=== PATIENT | female | born 1970 | race Caucasian/White ===

== ENCOUNTER 2018-10-14 12:57 | Emergency (ER) | payer BC, OTHER ==
[~2018-10-14] VITALS: Wt 75.0 kg
[2018-10-14] MEDS ORDERED: SOD CHLORIDE 0.9% 1,000 ML IV STA (13:49)
[2018-10-14] MEDS ORDERED: ONDANSETRON 4 MG INJ IV STA (13:49)
[2018-10-14] MEDS ORDERED: MECLIZINE 12.5 MG TAB PO ONE (14:00)
--- NOTE | 2018-10-14 14:15 | ERD ---
ER Documentation Chief Complaint Chief Complaint NON TRAUMATIC DIZZINESS NO HEADACHE. GENERAL BODY PAIN. NO FEVERS HPI This is a 48-year-old female with a nonsignificant past medical history presents ED with multiple complaints. Patient states that 3 weeks ago she started having all over body aches. Patient states that over the past 2 days she started developing sore throat as well as a pressure-like headache. Patient states that today she had 3 episodes of dizziness that she describes as the room spinning with head movement. Patient states as when she lies still she does not experience the dizziness. Patient denies fever, chills, worst headache of life, blurry vision, changes in vision, weakness, confusion, nausea or vomiting and all other symptoms ROS All systems reviewed and are negative except as per history of present illness. Allergies Allergies: Coded Allergies: No Known Allergy (Unverified , 04/23/13) PMhx/Soc History of Surgery: Yes (APPENDIX, BLADDER LIFT) Anesthesia Reaction: No Hx Neurological Disorder: No Hx Respiratory Disorders: No Hx Cardiac Disorders: No Hx Psychiatric Problems: No Hx Miscellaneous Medical Probl: No (MIGRAINES) Hx Alcohol Use: No Hx Substance Use: No Hx Tobacco Use: No FmHx Family History: No diabetes Physical Exam Vitals Vital Signs Date Temp Pulse Resp B/P (MAP) Pulse Ox O2 O2 Flow FiO2 Time Delivery Rate 10/14/18 98.2 90 18 150/88 98 13:00 (108) Physical Exam Physical Exam Vitals signs: Reviewed by me. General: Well developed, well nourished, in no acute distress. Patient is awake and alert. Head: Normocephalic, atraumatic. Eyes: Normal conjunctiva, Pupils PERRLA, EOM intact bilaterally x6 ENT: Pharynx is clear, Moist mucous membranes, external ears, nose and mouth n ormal Neck: Supple, no masses, lymphadenopathy or JVD Respiratory: Clear to auscultation bilaterally with no wheezing, rhonchi, rales, no distress Cardiovascular: RRR, no murmurs, rubs, or gallops Abdominal: Soft, non-tender, non-distended, no peritoneal signs : Deferred MSK: No edema, no unilateral swelling, 5/5 strength Back: No midline tenderness. No flank tenderness Neurologic: Alert and oriented, moving all extremities, normal speech, no focal weakness, no cerebellar signs. Normal mentation Neuro: M/S: Alert and oriented Face: EOMI, face and pharynx with normal sensation and function Motor: Normal strength throughout Sensation: Normal sensation throughout Speech: Normal Cerebel: Normal coordination Normal gait Normal finger to nose DTR: 2+ and symmetric upper/lower extremities Cranial nerves 2 through 12 intact bilaterally Skin: warm and dry, No rash Psych: Normal mood Result Diagram: 10/14/18 1411 10/14/18 1411 Results 24 hrs Laboratory Tests Test 10/14/18 14:11 White Blood Count 7.0 10^3/ul Red Blood Count 5.04 10^6/ul Hemoglobin 14.5 g/dl Hematocrit 42.4 % Mean Corpuscular Volume 84.1 fl Mean Corpuscular Hemoglobin 28.8 pg Mean Corpuscular Hemoglobin Concent 34.2 g/dl Red Cell Distribution Width 13.1 % Platelet Count 317 10^3/UL Mean Platelet Volume 9.5 fl Immature Granulocytes % 0.400 % Neutrophils % 66.2 % Lymphocytes % 24.4 % Monocytes % 6.4 % Eosinophils % 1.9 % Basophils % 0.7 % Nucleated Red Blood Cells % 0.0 /100WBC Immature Granulocytes # 0.030 10^3/ul Neutrophils # 4.6 10^3/ul Lymphocytes # 1.7 10^3/ul Monocytes # 0.5 10^3/ul Eosinophils # 0.1 10^3/ul Basophils # 0.1 10^3/ul Nucleated Red Blood Cells # 0.0 10^3/ul Prothrombin Time 26.0 Sec Prothrombin Time Ratio 2.0 INR International Normalized Ratio 2.37 Activated Partial Thromboplast Time 28.6 Sec Urine Color STRAW Urine Clarity CLEAR Urine pH 6.0 Urine Specific [place] 1.003 Urine Ketones NEGATIVE mg/dL Urine Nitrite NEGATIVE mg/dL Urine Bilirubin NEGATIVE mg/dL Urine Urobilinogen NEGATIVE mg/dL Urine Leukocyte Esterase NEGATIVE Meet/ul Urine Hemoglobin NEGATIVE mg/dL Urine Glucose NEGATIVE mg/dL Urine Total Protein NEGATIVE mg/dl Sodium Level 140 mmol/L Potassium Level 3.8 mmol/L Chloride Level 102 mmol/L Carbon Dioxide Level 25 mmol/L Anion Gap 13 Blood Urea Nitrogen 11 mg/dl Creatinine 0.65 mg/dl Est Glomerular Filtrat Rate mL/min > 60 mL/min Glucose Level 114 mg/dl Calcium Level 10.0 mg/dl Total Bilirubin 0.3 mg/dl Direct Bilirubin 0.00 mg/dl Indirect Bilirubin 0.3 mg/dl Aspartate Amino Transf (AST/SGOT) 42 IU/L Alanine Aminotransferase (ALT/SGPT) 34 IU/L Alkaline Phosphatase 77 IU/L Total Protein 8.6 g/dl Albumin 4.9 g/dl Globulin 3.70 g/dl Albumin/Globulin Ratio 1.32 Current Medications Medications Dose Sig/Virgil Start Time Status Last (Trade) Ordered Route PRN Stop Time Admin Dose Reason Admin Sodium 1,000 ml @ Q1H STAT 10/14/18 DC 10/14/18 Chloride 1,000 mls/hr IV 13:49 14:20 10/14/18 14:49 Ondansetron 4 mg ONCE STAT 10/14/18 DC 10/14/18 HCl (Zofran IV 13:49 14:20 Inj) 10/14/18 13:52 Meclizine 25 mg ONCE ONCE 10/14/18 DC 10/14/18 HCl PO 14:00 14:20 (Antivert) 10/14/18 14:01 Procedures/MDM EKG, MONITORS, & DIAGNOSTIC IMAGING: EKG read by waldrop: Rate/Rhythm: Regular rate and rhythm at a rate of 67 Intervals: Normal Impression: No evidence of ischemia or arrhythmia No ST elevation, no peak T waves, no widened QRS, no [place] interval prolongation [place] [address] Radiology Main Line: [phone] DIAGNOSTIC IMAGING REPORT Patient: LAZARO SAHU : 1970 Age: 48 Sex: F MR #: [id number] [facility] #: [id number] DOS: 10/14/18 [facility]9 Ordering MD: GREGORIO SOTOMAYOR PA-C Location: [facility] Room/Bed: PROCEDURE: CT Brain without contrast. CLINICAL INDICATION: Headache. TECHNIQUE: A CT of the brain without contrast was performed utilizing axial sections from the skull base through the vertex. One or more the following does reduction techniques were utilized: Automated exposure control, adjustment of the mA/ or kV according to patient's size, or use of iterative reconstruction technique. Total exam CTDIvol is 39 MGy and DLP is 634 mGy-cm. DICOM images are available. COMPARISON: Brain CT 10/07/2012. FINDINGS: The ventricles and sulci are age-appropriate. There is no intracranial hemorrhage, mass effect or midline shift. No abnormal intra-axial or extra- axial fluid collections are seen. The parson/white matter differentiation is well preserved. Partially empty sella turcica is noted. There are minimal scattered foci of hypoattenuation in the periventricular, deep, and subcortical white matter, which are nonspecific in etiology but likely reflect chronic small vessel ischemic changes. The visualized paranasal sinuses are essentially clear. IMPRESSION: 1. No acute intracranial hemorrhage, transcortical infarction or mass effect. 2. Minimal chronic small vessel ischemic changes. 3. Partially empty sella turcica. RPTAT: HH .Jason Hdez MD, Date Time Electronically viewed and signed by .Jason Hdez MD, MD on 10/14/2018 14:59 .N/ CC: GREGORIO SOTOMAYOR PA-C [id number] LAB INTERPRETATION: CBC shows no evidence of hemorrhage or infection Chemistry shows no evidence of significant electrolyte abnormalities or renal insufficiency Liver function test shows no evidence of acute biliary or hepatic dysfunction Coagulation study showed no concerning coagulopathy UA Unremarkable ER COURSE: The patient was given IV normal saline, meclizine and Zofran The medication was well tolerated and the patient reports improvement in symptoms. The patient was stable throughout ED course. I kept the patient and/or family informed of laboratory and diagnostic imaging results throughout the emergency room course. The patient was promptly evaluated and a treatment plan was devised based on H&P and other data. This plan was discussed with the patient who agreed and had no further questions or concerns prior to discharge. MEDICAL DECISION MAKING: This is a 48-year-old female with a nonsignificant past medical history presents ED with multiple complaints. Patient states that 3 weeks ago she started having all over body aches. Patient states that over the past 2 days she started developing sore throat as well as a pressure-like headache. Patient states that today she had 3 episodes of dizziness that she describes as the room spinning with head movement. Differential diagnosis include but are not limited to central causes such as cerebellar infarct, cerebellar pallor hemorrhage, cerebellar tumor, acoustic neuroma, peripheral causes such as benign positional vertigo, labyrinthitis, medication, Mnire's disease. This is likely benign positional vertigo. Patient has no neurological deficits. Patient was given meclizine, Zofran and IV normal saline in the ED today and reports improvement in symptoms. patient's vitals are stable and can be managed with close out patient follow up. Advised to follow up with primary care in the next 48 hours. Return to emergency department with any any worsening symptoms Discussed case with my overseeing physician Dr. Josue benz and he agrees with plan of close outpatient follow-up. DISPOSITION PLAN: We discussed follow up with the patient's primary care doctor within 24 to 48 hours. Patient counseled regarding my diagnostic impression and care plan. Prior to discharge all questions answered. Pt agrees with treatment plan and understands strict return precautions. Precautionary instructions provided including instructions to return to the ER if not improving or for any worsening or changing symptoms or concerns. SPECIALIST FOLLOW UP RECOMMENDED: None Patient has been advised to follow up with primary care in 1-2 days. Disclaimer: Inadvertent spelling and grammatical errors are likely due to EHR/dictation software use and do not reflect on the overall quality of patient care. Also, please note that the electronic time recorded on this note does not necessarily reflect the actual time of the patient encounter. Blood Pressure Assessment: Patient's blood pressure was elevated (>120/80) but appears stable without evidence of hypertension emergency or urgency. The patient was counseled about the risks of hypertension and urged to pursue outpatient monitoring and therapy within a week with their primary care physician. Departure Diagnosis: Primary Impression: Benign positional vertigo Laterality: unspecified laterality Qualified Codes: H81.10 - Benign paroxysmal vertigo, unspecified ear Condition: Stable Patient Instructions: Benign Positional Vertigo, Vertigo, Unspecified Referrals: [facility] Additional Instructions: Patient advised to return to the ED immediately for new or worsening symptoms. Patient advised to follow up with primary care provider in the next 24-48 hours. Patient verbalized understanding and agrees with treatment plan and course of action. If patient has no primary care they may follow up with one of the community clinics listed on the following page or one of the options listed below [facility] + [address] [address] or [facility] [address] [place] [address] or [facility] [address] [place] [address] GREGORIO SOTOMAYOR PA-C Oct 14, 2018 14:15
[2018-10-14] MEDS ORDERED: MECL12.574 PO (15:17)
[2018-10-14 15:28] VITALS: BP 124/82; PULSE 66; RESP 16
== END 2018-10-14 15:32 | disposition home or self-care (01) ==
LOC: FTE 12:57
DX: H81.13 Benign paroxysmal vertigo, bilateral (principal)
CPT/HCPCS: 36415; 70450; 80053; 81003; 85025; 85610; 85730; 87400; 93005; 96361; 96374; 99285; J2405; J7030

== ENCOUNTER 2018-12-01 08:08 | Emergency (ER) | payer BC ==
[~2018-12-01] VITALS: Wt 73.0 kg
[~2018-12-01 08:08] MED LIST: MECL12.574 PO
[2018-12-01] MEDS ORDERED: ONDANSETRON 4 MG INJ IV STA (08:28)
[2018-12-01] MEDS ORDERED: morphine 4 MG/ML VIAL IV STA (08:28)
[2018-12-01] MEDS ORDERED: IBUP-1542 PO (09:52)
[2018-12-01] MEDS ORDERED: ONDA4TAB14 PO (09:52)
[2018-12-01 10:02] VITALS: BP 146/76; PULSE 72; RESP 18
--- NOTE | 2018-12-01 13:59 | ERD ---
ER Documentation Chief Complaint Chief Complaint RIGHT FLANK PAIN X 4 DAYS WITH NAUSEA HPI Patient is a 48-year-old female with hypertension who presents with abdominal pain. The patient had abdominal pain in the right upper quadrant which started 4 days ago. The pain comes and goes and is sharp in nature. The patient tried ibuprofen yesterday. The patient has no fevers. The patient has nausea but no vomiting or diarrhea. ROS All systems reviewed and are negative except as per history of present illness. Medications Home Meds Active Scripts Ondansetron (Ondansetron Odt) 4 Mg Tab.rapdis, 4 MG PO Q6H PRN for NAUSEA AND/OR VOMITING, #10 TAB Prov:CHIKIS DESAI MD 12/01/18 Ibuprofen* (Motrin*) 600 Mg Tab, 600 MG PO Q6H PRN for PAIN AND OR ELEVATED TEMP, #30 TAB Prov:CHIKIS DESAI MD 12/01/18 Meclizine Hcl* (Antivert*) 12.5 Mg Tab, 12.5 MG PO Q6H PRN for DIZZINESS, #20 TAB Prov:GREGORIO SOTOMAYOR PA-C 10/14/18 Allergies Allergies: Coded Allergies: No Known Allergy (Unverified , 04/23/13) PMhx/Soc History of Surgery: Yes (APPENDIX, BLADDER LIFT) Anesthesia Reaction: No Hx Neurological Disorder: No Hx Respiratory Disorders: No Hx Cardiac Disorders: Yes (HTN) Hx Psychiatric Problems: No Hx Miscellaneous Medical Probl: No (MIGRAINES) Hx Alcohol Use: No Hx Substance Use: No Hx Tobacco Use: No Smoking Status: Never smoker FmHx Family History: diabetes Physical Exam Vitals Vital Signs Date Temp Pulse Resp B/P (MAP) Pulse Ox O2 O2 Flow FiO2 Time Delivery Rate 12/01/18 72 18 146/76 98 Room Air 10:02 (99) 12/01/18 98.1 65 18 158/97 99 08:09 (117) Physical Exam Const: No acute distress Head: Atraumatic Eyes: Normal Conjunctiva ENT: Normal External Ears, Nose and Mouth. Neck: Full range of motion. No meningismus. Resp: Clear to auscultation bilaterally Cardio: Regular rate and rhythm, no murmurs Abd: Soft, right upper quadrant tenderness to palpation without rebound or guarding Skin: No petechiae or rashes Back: No midline or flank tenderness Ext: No cyanosis, or edema Neur: Awake and alert Psych: Normal Mood and Affect Result Diagram: 12/01/18 0833 12/01/18 0833 Results 24 hrs Laboratory Tests Test 12/01/18 08:33 12/01/18 08:57 White Blood Count 4.8 10^3/ul Red Blood Count 4.80 10^6/ul Hemoglobin 13.7 g/dl Hematocrit 40.8 % Mean Corpuscular Volume 85.0 fl Mean Corpuscular Hemoglobin 28.5 pg Mean Corpuscular Hemoglobin Concent 33.6 g/dl Red Cell Distribution Width 13.3 % Platelet Count 264 10^3/UL Mean Platelet Volume 9.8 fl Immature Granulocytes % 0.400 % Neutrophils % 54.8 % Lymphocytes % 33.4 % Monocytes % 7.3 % Eosinophils % 3.3 % Basophils % 0.8 % Nucleated Red Blood Cells % 0.0 /100WBC Immature Granulocytes # 0.020 10^3/ul Neutrophils # 2.6 10^3/ul Lymphocytes # 1.6 10^3/ul Monocytes # 0.4 10^3/ul Eosinophils # 0.2 10^3/ul Basophils # 0.0 10^3/ul Nucleated Red Blood Cells # 0.0 10^3/ul Urine Color YELLOW Urine Clarity SLIGHTLY CLOUDY Urine pH 5.0 Urine Specific [place] 1.018 Urine Ketones NEGATIVE mg/dL Urine Nitrite NEGATIVE mg/dL Urine Bilirubin NEGATIVE mg/dL Urine Urobilinogen NEGATIVE mg/dL Urine Leukocyte Esterase TRACE Meet/ul Urine Microscopic RBC > 182 /HPF Urine Microscopic WBC 6 /HPF Urine Squamous Epithelial Cells FEW /HPF Urine Mucus FEW /HPF Urine Hemoglobin 3+ mg/dL Urine Glucose NEGATIVE mg/dL Urine Total Protein NEGATIVE mg/dl Sodium Level 143 mmol/L Potassium Level 4.1 mmol/L Chloride Level 108 mmol/L Carbon Dioxide Level 28 mmol/L Anion Gap 7 Blood Urea Nitrogen 13 mg/dl Creatinine 0.67 mg/dl Est Glomerular Filtrat Rate mL/min > 60 mL/min Glucose Level 95 mg/dl Calcium Level 9.2 mg/dl Total Bilirubin 0.5 mg/dl Direct Bilirubin 0.00 mg/dl Indirect Bilirubin 0.5 mg/dl Aspartate Amino Transf (AST/SGOT) 37 IU/L Alanine Aminotransferase (ALT/SGPT) 28 IU/L Alkaline Phosphatase 62 IU/L Total Protein 7.5 g/dl Albumin 4.1 g/dl Globulin 3.40 g/dl Albumin/Globulin Ratio 1.20 Lipase 54 U/L POC Beta HCG, Qualitative NEGATIVE Current Medications Medications Dose Sig/Virgil Start Time Status Last (Trade) Ordered Route PRN Stop Time Admin Dose Reason Admin Morphine 4 mg ONCE STAT 12/01/18 DC 12/01/18 Sulfate IV 08:28 12/01/18 08:47 (morphine) 08:29 Ondansetron 4 mg ONCE STAT 12/01/18 DC 12/01/18 HCl (Zofran IV 08:28 12/01/18 08:47 Inj) 08:29 Procedures/MDM Ultrasound the gallbladder shows no signs of cholecystitis per radiology. Patient is a 48-year-old female who presents with abdominal pain. Laboratory studies are basically normal and ultrasound shows no signs of cholecystitis. I believe the patient likely has biliary colic at this point. The patient will be given a prescription for ibuprofen and Zofran and will need to follow-up with the primary doctor as well as Dr. Adorno the surgeon on-call for potential elective cholecystectomy. At this point I doubt cholecystitis, pancreatitis, appendicitis, or bowel obstruction. I believe outpatient management is appropriate but the patient will need close follow-up within 24 to 48 hours. The patient can return for any worsening symptoms. Departure Diagnosis: Primary Impression: Biliary colic Additional Impression: Abdominal pain Abdominal location: right upper quadrant Qualified Codes: R10.11 - Right upper quadrant pain Condition: Fair Patient Instructions: Abdominal Pain Referrals: AXEL ADORNO MD Additional Instructions: Call your primary care doctor TOMORROW for an appointment during the next 1-2 days.See the doctor sooner or return here if your condition worsens before your appointment time. CHIKIS DESAI MD Dec 01, 2018 13:59
== END 2018-12-01 10:08 | disposition home or self-care (01) ==
LOC: E/R 08:08
DX: K80.50 Calculus of bile duct without cholangitis or cholecystitis without obstruction (principal); I10 Essential (primary) hypertension
CPT/HCPCS: 36415; 76705; 80053; 81001; 81025; 83690; 85025; 96374; 96375; 99285; J2270; J2405

== ENCOUNTER 2019-03-07 15:57 | Emergency (ER) | payer BC ==
[~2019-03-07] VITALS: Ht 157.5 cm; Wt 66.1 kg
[~2019-03-07 15:57] MED LIST changes: +ACET-141 PO; +D-ME118S24 PO; +IBUP-1542 PO; +ONDA4TAB14 PO
[2019-03-07 16:11] VITALS: BP 136/72; PULSE 87; RESP 16; Ht 157.5 cm; Wt 66.1 kg
== END 2019-03-07 17:26 | disposition home or self-care (01) ==
LOC: E/R 15:57
DX: R05 Cough (principal); I10 Essential (primary) hypertension
CPT/HCPCS: 71045